=== PATIENT | female | born 1970 | race Caucasian/White ===

== ENCOUNTER 2022-03-11 07:29 | Inpatient (IN) ==
[2022-03-11] MEDS ORDERED: MoRPHine SULFATE 4 MG/ML 1 ML CARP\\VIAL IV STA (08:00)
[2022-03-11] MEDS ORDERED: ONDANSETRON INJ 2 MG/ML 2 ML VIAL IV STA (08:00)
[2022-03-11] MEDS ORDERED: SODIUM CHLORIDE 0.9% 1000ML 1,000 ML IV ONE (08:00)
--- NOTE | 2022-03-11 08:03 | Emergency Department Note ---
History of Present Illness General Chief complaint: Abdominal Pain Stated complaint: ABDOMINAL PAIN, NAUSEA Time Seen by Provider: 03/11/22 07:47 Source: patient Mode of arrival: ambulatory Limitations: no limitations History of Present Illness Maximum Pain Intensity: 5 This patient is a 51-year-old female who presents to the emergency department for evaluation of abdominal pain. Patient reports that her pain started yesterday morning. She initially had some epigastric pain which felt like indigestion. She states the pain continued throughout the day, but has now moved to her right lower abdomen. She had trouble sleeping overnight due to the pain. She rates her current discomfort a 5/10. It is worsened with any movements, palpating the area and hitting bumps on the road on the way here. Pain is better when she is lying completely still. She tried Mylicon and Tylenol without relief. She reports nausea but denies vomiting. She denies any changes in bowel movements. She denies any urinary symptoms or fevers. She denies history of similar symptoms. She has had a prior , but denies o ther abdominal surgeries. She still has her appendix and gallbladder. Home Medications Medication Instructions Recorded Confirmed Type acetaminophen 500 mg tablet 500 mg PO Q6H PRN 03/11/22 03/11/22 History (Tylenol Extra Strength) cholecalciferol (vitamin D3) 50 50 mcg PO QAM 03/11/22 03/11/22 History mcg (2,000 unit) capsule diphenhydramine HCl 25 mg capsule 25 mg PO HS 03/11/22 03/11/22 History (Benadryl) simethicone 80 mg chewable tablet 80 mg PO BID PRN 03/11/22 03/11/22 History Allergies Allergy/AdvReac Type Severity Reaction Status Date / Time No Known Allergies Allergy Verified 03/11/22 11:25 Past Med/Surg History Medical History Atrophy of left kidney Surgical History History of section S/P tonsillectomy Social History Smoking Status: Former smoker Cigarettes Per Day: 10/22/2007; Second Hand Exposure: Yes; Do You Dip or Chew Tobacco: No; Hx Alcohol Use: Yes Alcohol type: beer Hx Substance Use: No Preferred Language: Tuvaluan Communication Ability: Effective Farm Planner Required: No Current Living Situation: Spouse Other Information That Helps Us Care for You: No Feels Safe at Home: Yes Safety Concerns: Feels Safe At This Time Assistive Devices: None Review of Systems A total of 10 systems reviewed and were otherwise negative Physical Exam Vital Signs Vital Signs - 24 hr 03/11/22 07:36 03/11/22 08:04 03/11/22 10:08 Temperature 36.8 C Temperature Source Temporal Artery Scan Pulse Rate 103 H 70 Pulse Rate [Apical] 88 Pulse Rate [Left Finger] Pulse Rhythm Regular Pulse Rhythm [Apical] Pulse Rhythm [Left Finger] Pulse Strength [Apical] Pulse Strength [Left Finger] Respiratory Rate 18 18 18 Respiratory Effort / Characteristics Non-Labored Respiratory Depth Normal Respiratory Pattern Regular Blood Pressure 129/63 Blood Pressure [Right Arm] 144/67 H Blood Pressure Mean 85 Blood Pressure Mean [Right Arm] 92 Blood Pressure Position [Right Arm] Pulse Oximetry 99 100 Oxygen Delivery Method Room Air Room Air Oxygen Flow Rate Sepsis Recent Fever Within 48 Hours No Sepsis New/Unexplained Change in Mental Status No Sepsis Action Taken by Nursing No Action Required 03/11/22 11:08 03/11/22 11:25 03/11/22 13:23 Temperature 38.1 C H 37.2 C Temperature Source Oral Temporal Artery Scan Pulse Rate Pulse Rate [Apical] 87 105 H Pulse Rate [Left Finger] 107 H Pulse Rhythm Pulse Rhythm [Apical] Regular Pulse Rhythm [Left Finger] Regular Pulse Strength [Apical] Normal Pulse Strength [Left Finger] Normal Respiratory Rate 18 20 20 Respiratory Effort / Characteristics Non-Labored Spontaneous Non-Labored Spontaneous Respiratory Depth Normal Normal Respiratory Pattern Regular Regular Blood Pressure Blood Pressure [Right Arm] 135/74 115/68 Blood Pressure Mean Blood Pressure Mean [Right Arm] 94 83 Blood Pressure Position [Right Arm] Semi-fowlers Lying Pulse Oximetry 97 99 99 Oxygen Delivery Method Room Air Room Air Oxymask Oxygen Flow Rate 6 Sepsis Recent Fever Within 48 Hours Sepsis New/Unexplained Change in Mental Status Sepsis Action Taken by Nursing VITALS: Vitals are noted on the nurse's note and reviewed by myself. GENERAL: This is a 51-year-old female, in no acute distress, well-developed well-nourished. SKIN: The skin was without rashes. EARS: External auditory canals clear, tympanic membranes pearly jones without erythema or effusion bilaterally. EYES: Pupils equal round and reactive to light and accommodation. No scleral icterus. MOUTH: Mucous membranes moist. Tonsils are not enlarged. Pharynx without erythema or exudate. NECK: Supple without nuchal rigidity. No lymphadenopathy. HEART: Regular rate and rhythm without murmurs gallops or rubs. LUNGS: Clear to auscultation bilaterally without wheezes, rales or rhonchi. No retractions or accessory muscle use. ABDOMEN: Positive bowel sounds x 4. Soft, significant tenderness in the right lower quadrant No guarding or rebound tenderness. NEURO: Patient was alert and oriented to person place and time. Course Administered Medications Lactated Ringer's (Lr) 1,000 mls @ 80 mls/hr IV .[id number] CARLENE Stop: 04/10/22 16:16 Last Admin: 03/11/22 16:51 Dose: 80 mls/hr Documented by: [id number] Cefoxitin Sodium 2,000 mg/ (Dextrose) 60 mls @ 100 mls/hr IV Q6H [facility] Stop: 03/12/22 16:29 Last Admin: 03/11/22 16:52 Dose: 100 mls/hr Documented by: [id number] Discontinued Medications Bupivacaine HCl/Epinephrine Bitart (Bupivacaine/Epinephrine 0.25% 1:200,000 30 Ml Vial) Confirm Administered Dose 30 ml .ROUTE .STK-MED ONE Stop: 03/11/22 11:10 Last Admin: 03/11/22 13:02 Dose: 30 ml Documented by: [id number] Fentanyl Citrate (Fentanyl Citrate 100 Mcg/2 Ml Vial) 50 mcg IV Q5M PRN PRN Reason: PACU Use Only-Pain Stop: 03/11/22 18:40 Last Admin: 03/11/22 14:18 Dose: 50 mcg Documented by: [id number] Admin: 03/11/22 14:09 Dose: 50 mcg Documented by: [id number] Admin: 03/11/22 13:54 Dose: 50 mcg Documented by: [id number] Admin: 03/11/22 13:49 Dose: 50 mcg Documented by: [id number] Hydromorphone HCl (Hydromorphone Inj 1 Mg/Ml Syringe) Confirm Administered Dose 1 mg .ROUTE .STK-MED ONE Stop: 03/11/22 15:10 Last Admin: 03/11/22 15:17 Dose: Not Given Documented by: [id number] Hydromorphone HCl (Hydromorphone Inj 1 Mg/Ml Syringe) 0.25 mg IV Q5M PRN PRN Reason: PACU Use Only-Pain Stop: 03/11/22 23:12 Last Admin: 03/11/22 15:11 Dose: 0.25 mg Documented by: [id number] Sodium Chloride (Nss 1000ml) 1,000 mls @ 999 mls/hr IV .Q1H1M ONE Stop: 03/11/22 09:00 Last Infusion: 03/11/22 09:36 Dose: 0 mls/hr Documented by: [id number] Admin: 03/11/22 08:18 Dose: 999 mls/hr Documented by: [id number] Cefoxitin Sodium (Mefoxin) 2,000 mg in 60 mls @ 100 mls/hr IV NOW STA Stop: 03/11/22 10:48 Last Infusion: 03/11/22 11:04 Dose: 0 mls/hr Documented by: [id number] Admin: 03/11/22 10:24 Dose: 100 mls/hr Documented by: [id number] Ioversol (Optiray 320 100ml) 70 ml IV ONCE ONE Stop: 03/11/22 09:46 Last Admin: 03/11/22 09:38 Dose: 70 ml Documented by: [id number] Morphine Sulfate (Morphine Sulfate 4 Mg/Ml 1 Ml Carp\Vial) 4 mg IV NOW STA Stop: 03/11/22 08:01 Last Admin: 03/11/22 08:18 Dose: 4 mg Documented by: [id number] Ondansetron HCl (Ondansetron Inj 2 Mg/Ml 2 Ml Vial) 4 mg IV NOW STA Stop: 03/11/22 08:01 Last Admin: 03/11/22 08:18 Dose: 4 mg Documented by: [id number] Medical Decision Making Differential Diagnosis Appendicitis, ovarian cyst, ovarian torsion, ectopic , TOA, PID, inf ections, diverticulitis, UTI, obstruction, mesenteric ischemia, aortic pathology, inflammatory bowel disease, renal colic, PUD, pancreatitis, biliary pathology, hernia, volvulus, constipation, as well as other pathologies. Home Medications Current Medication List: was personally reviewed by me Laboratory Data Attestation: I reviewed the patient's lab results. Result diagrams: 03/11/22 07:53 03/11/22 07:53 Lab Results 03/11/22 03/11/22 03/11/22 Range/Units 07:53 07:53 07:53 WBC 14.98 H (4.8-10.8) K/uL RBC 4.86 (4.2-5.4) M/uL Hgb 14.3 (12.0-16.0) g/dL Hct 41.1 (37-47) % MCV 84.6 (80-100) fL MCH 29.4 (25-34) pg MCHC 34.8 (32-36) g/dL RDW Std Deviation 39.9 (36.4-46.3) fL RDW Coeff of Sandra 13.2 (11.5-14.5) % Plt Count 373 (130-400) K/uL MPV 9.4 (7.4-10.4) fL Immature Gran % (Auto) 0.4 % Neut % (Auto) 84.8 % Lymph % (Auto) 8.5 % [place] % (Auto) 6.0 % Eos % (Auto) 0.2 % Baso % (Auto) 0.1 % Neut # (Auto) 12.70 H (1.4-6.5) K/uL Lymph # (Auto) 1.27 (1.2-3.4) K/uL [place] # (Auto) 0.90 H (0.11-0.59) K/uL Eos # (Auto) 0.03 (0-0.5) K/uL Baso # (Auto) 0.02 (0-0.2) K/uL Immature Gran # (Auto) 0.06 H (0.00-0.02) K/uL Sodium 137 (136-145) mmol/L Potassium TNP Chloride 102 (98-107) mmol/L Carbon Dioxide 26 (21-32) mmol/L Anion Gap 9 (3-11) BUN 8 (6-23) mg/dl Creatinine 0.80 (0.6-1.2) mg/dl Est Cr Clr Drug Dosing 81.9 ml/min Est GFR ( Amer) 98.9 ml/min Est GFR (Non-Af Amer) 85.4 ml/min BUN/Creatinine Ratio 10.0 (10-20) Glucose 114 H (70-99(Fasting)) mg/dl Calcium 10.3 H (8.5-10.1) mg/dl Total Bilirubin 0.6 (0.2-1.0) mg/dl AST TNP ALT 44 (7-52) U/L Alkaline Phosphatase 111 H (34-104) U/L Total Protein 8.2 (6.0-8.3) gm/dl Albumin 4.9 (3.4-5.0) gm/dl Globulin 3.3 (2.5-4.0) gm/dl Albumin/Globulin Ratio 1.5 (0.9-2) Lipase 33 (11-82) U/L Urine Color Yellow Urine Appearance Clear (Clear) Urine pH 8.0 H (4.5-7.5) Ur Specific [place] 1.018 (1.000-1.030) Urine Protein Negative (Negative) Urine Glucose (UA) Negative (Negative) Urine Ketones Negative (Negative) Urine Blood Negative (Negative) Urine Nitrite Negative (Negative) Urine Bilirubin Negative (Negative) Urine Urobilinogen Negative (Negative) Ur Leukocyte Esterase Negative (Negative) POC Ur Test (NEG) SARS-CoV-2, RNA, NAAT (NEGATIVE) 03/11/22 03/11/22 03/11/22 Range/Units 07:53 10:25 10:56 WBC (4.8-10.8) K/uL RBC (4.2-5.4) M/uL Hgb (12.0-16.0) g/dL Hct (37-47) % MCV (80-100) fL MCH (25-34) pg MCHC (32-36) g/dL RDW Std Deviation (36.4-46.3) fL RDW Coeff of Sandra (11.5-14.5) % Plt Count (130-400) K/uL MPV (7.4-10.4) fL Immature Gran % (Auto) % Neut % (Auto) % Lymph % (Auto) % [place] % (Auto) % Eos % (Auto) % Baso % (Auto) % Neut # (Auto) (1.4-6.5) K/uL Lymph # (Auto) (1.2-3.4) K/uL [place] # (Auto) (0.11-0.59) K/uL Eos # (Auto) (0-0.5) K/uL Baso # (Auto) (0-0.2) K/uL Immature Gran # (Auto) (0.00-0.02) K/uL Sodium (136-145) mmol/L Potassium 3.7 Chloride (98-107) mmol/L Carbon Dioxide (21-32) mmol/L Anion Gap (3-11) BUN (6-23) mg/dl Creatinine (0.6-1.2) mg/dl Est Cr Clr Drug Dosing ml/min Est GFR ( Amer) ml/min Est GFR (Non-Af Amer) ml/min BUN/Creatinine Ratio (10-20) Glucose (70-99(Fasting)) mg/dl Calcium (8.5-10.1) mg/dl Total Bilirubin (0.2-1.0) mg/dl AST 28 ALT (7-52) U/L Alkaline Phosphatase (34-104) U/L Total Protein (6.0-8.3) gm/dl Albumin (3.4-5.0) gm/dl Globulin (2.5-4.0) gm/dl Albumin/Globulin Ratio (0.9-2) Lipase (11-82) U/L Urine Color Urine Appearance (Clear) Urine pH (4.5-7.5) Ur Specific [place] (1.000-1.030) Urine Protein (Negative) Urine Glucose (UA) (Negative) Urine Ketones (Negative) Urine Blood (Negative) Urine Nitrite (Negative) Urine Bilirubin (Negative) Urine Urobilinogen (Negative) Ur Leukocyte Esterase (Negative) POC Ur Test NEG (NEG) SARS-CoV-2, RNA, NAAT NEGATIVE (NEGATIVE) Imaging Data Attestation: I personally reviewed and interpreted this imaging study as follows: Radiologist's Impression: Abdomen/Pelvis CT 03/11/22 08:[address] WITH IV CONTRAST CT DOSE: 782.03 mGycm HISTORY: Right lower quadrant abdominal pain. TECHNIQUE: Multiaxial CT images of the abdomen and pelvis were performed following the use of intravenous contrast. A dose lowering technique was utilized adhering to the principles of ALARA. COMPARISON STUDY: None. FINDINGS: Small focal consolidation with bronchiectasis within the medial aspect of the right middle lobe. This is likely chronic. The left lung base is clear. Bilateral L5 spondylolysis. No suspicious lytic are blastic osseous lesions. Severe hepatic steatosis. The main portal vein is patent. The gallbladder, pancreas, spleen, and adrenal glands are unremarkable. Severely atrophic left kidney. Mild fullness within the right renal collecting system and right ureter without hydronephrosis. There is mild multifocal scarring within the right kidney. A 6 mm hypodense lesion within the right kidney is technically too small to characterize but likely represents a cyst. No retroperitoneal lymphadenopathy. The main portal vein is patent. The bladder, uterus, and ovar ies are within normal limits. Distended and fluid-filled appendix with extensive periappendiceal fat stranding/edema. This is consistent with acute appendicitis. There is a 6 mm appendicolith within the proximal appendix. The distal appendix is dilated up to 16 mm. Small foci of gas within the mid appendix is likely intraluminal. A developing contained perforation could also have a similar appearance. However, no definite extraluminal gas or abscess identified at this time. IMPRESSION: 1. Acute appendicitis as described above. 2. Hepatic steatosis. 3. Severely atrophic left kidney. ACT 112: Negative or not required by law. Electronically signed by: Ole Gant M.D. 03/11/2022 10:08 AM MDM Narrative Continuous latex fashions designer: Order was placed for continuous latex fashions designer. Patient was placed on the latex fashions designer. Patient was noted to be in sinus tachycardia at an initial rate of 104 bpm. The patient is a 51-year-old female who presents today complaining of right lower quadrant abdominal pain. Labs revealed a leukocytosis of 15,000. There were no concerning electrolyte abnormalities. CT scan showed findings suggestive of appendicitis. Patient given a dose of IV cefoxitin. General surgery was consulted and agreed to evaluate the patient at bedside. Patient was taken to the OR for operative management. Impression & Plan Acute appendicitis Discharge Plan Visit Data Chief Complaint: Abdominal Pain Stated Complaint: ABDOMINAL PAIN, NAUSEA ED Provider: Wilfred Islas ED Midlevel Provider: Palmira King Discharge Problem: Acute appendicitis Patient Disposition: Admitted As Inpatient Discharge Instructions Interventions: ED Discharge Assessment Last Done: 03/11/22 11:00
[2022-03-11 08:08] LABS: Basophils # (auto) 0.02 K/uL (0-0.2); Basophils % (auto) 0.1 %; Eosinophils # (auto) 0.03 K/uL (0-0.5); Eosinophils % (auto) 0.2 %; Hematocrit (blood only) 41.1 % (37-47); Hemoglobin 14.3 g/dL (12.0-16.0); Immature Granulocytes # (auto) 0.06 K/uL (0.00-0.02); Immature Granulocytes % (auto) 0.4 %; Lymphocytes # (auto) 1.27 K/uL (1.2-3.4); Lymphocytes % (auto) 8.5 %; Mean Corpuscular Hemoglobin 29.4 pg (25-34); Mean Corpuscular Hgb Conc 34.8 g/dL (32-36); Mean Corpuscular Volume 84.6 fL (80-100); Mean Platelet Volume 9.4 fL (7.4-10.4); Neutrophils % (auto) 84.8 %; Platelet Count 373 K/uL (130-400); RDW Coefficient of Variation 13.2 % (11.5-14.5); RDW Standard Deviation 39.9 fL (36.4-46.3); Red Blood Count 4.86 M/uL (4.2-5.4); White Blood Count 14.98 K/uL (4.8-10.8)
[2022-03-11 08:12] LABS: Appearance Urine Clear (Clear); Bilirubin Urine Negative (Negative); Blood Urine Negative (Negative); Color Urine Yellow; Glucose Urine UA Negative (Negative); Ketones Urine Negative (Negative); Leukocyte Esterase Urine Negative (Negative); Nitrite Urine Negative (Negative); Protein Urine Negative (Negative); Specific Gravity Urine 1.018 (1.000-1.030); Urobilinogen Urine Negative (Negative)
[2022-03-11 08:53] LABS: Alanine Aminotransferase 44 U/L (7-52); Albumin Globulin Ratio 1.5 (0.9-2); Albumin Level 4.9 gm/dl (3.4-5.0); Alkaline Phosphatase 111 U/L (34-104); Anion Gap 9 (3-11); Bilirubin,Total 0.6 mg/dl (0.2-1.0); Blood Urea Nitrogen 8 mg/dl (6-23); Calcium 10.3 mg/dl (8.5-10.1); Carbon Dioxide 26 mmol/L (21-32); Chloride 102 mmol/L (98-107); Creatinine Clr Calc Pharmacy 81.9 ml/min; Est GFR (African American) 98.9 ml/min; Est GFR (Non-African American) 85.4 ml/min; Globulin 3.3 gm/dl (2.5-4.0); Glucose 114 mg/dl (70-99(Fasting)); Lipase 33 U/L (11-82); Sodium 137 mmol/L (136-145); Total Protein 8.2 gm/dl (6.0-8.3)
[2022-03-11 09:15] LABS: Potassium 3.7 mmol/L (3.5-5.1)
[2022-03-11] MEDS ORDERED: OPTIRAY 320 100ml IV ONE (09:45)
--- NOTE | 2022-03-11 10:10 | CT Scan Report ---
ABDOMEN AND PELVIS CT WITH IV CONTRAST CT DOSE: 782.03 mGycm HISTORY: Right lower quadrant abdominal pain. TECHNIQUE: Multiaxial CT images of the abdomen and pelvis were performed following the use of intrave nous contrast. A dose lowering technique was utilized adhering to the principles of ALARA. COMPARISON STUDY: None. FINDINGS: Small focal consolidation with bronchiectasis within the medial aspect of the right middle lobe. This is likely chronic. The left lung base is clear. Bilateral L5 spondylolysis. No suspicious lytic are blastic osseous lesions. Severe hepatic steatosis. The main portal vein is patent. The gall bladder, pancreas, spleen, and adrenal glands are unremarkable. Severely atrophic left kidney. Mild f ullness within the right renal collecting system and right ureter without hydronephrosis. There is mi ld multifocal scarring within the right kidney. A 6 mm hypodense lesion within the right kidney is te chnically too small to characterize but likely represents a cyst. No retroperitoneal lymphadenopathy. The main portal vein is patent. The bladder, uterus, and ovaries are within normal limits. Distended and fluid-filled appendix with extensive periappendiceal fat stranding/edema. This is consistent wit h acute appendicitis. There is a 6 mm appendicolith within the proximal appendix. The distal appendix is dilated up to 16 mm. Small foci of gas within the mid appendix is likely intraluminal. A developi ng contained perforation could also have a similar appearance. However, no definite extraluminal gas or abscess identified at this time. IMPRESSION: 1. Acute appendicitis as described above. 2. Hepatic steatosis. 3. Severely atrophic left kidney. ACT 112: Negative or not required by law. Electronically signed by: Ole Gant M.D. 03/11/2022 10:08 AM
[2022-03-11] MEDS ORDERED: cefOXitin 2,000 MG/60 ML BAG IV STA (10:13)
--- NOTE | 2022-03-11 10:39 | Surgery Consultation ---
Date of Consultation March 11, 2022 Assessment & Plan (1) Acute appendicitis: This is a 51yF with a PMH of and atrophy of L kidney who presents to the [facility] [place] ED on 03/11/22 with complaints of abdominal pain starting yesterday morning. Pain has migrated to the RLQ and remained constant. In the ER she underwent a CT a/p performed revealed evidence of acute appendicitis. WBC 14.9 and patient is afebrile. On examination patient's abdomen is soft with TTP in the RLQ. Given her presentation and workup in the ER we will proceed with taking the patient to the OR for a laparoscopic appendectomy. Keep NPO with IVF, preop Mefoxin given. Covid test pending. Dr. Lamar will be by to obtain s urgical consent. Supervising Physician Co-Signing Physician Notes I personally saw and evaluated the patient with Shilpa Alvarado PA-C and agree with the assessment and plan. 51-year-old female with acute appendicitis CT images and results reviewed by me, questionable perforation however no abscess or fluid collection We will plan on laparoscopic appendectomy, possible open today Consent was obtained, risks discussed including bleeding, infection, leak, abscess, need for further surgery History of Present Illness History of Present Illness This is a 51yF with a PMH of and atrophy of L kidney who presents to the [facility] [place] ED on 03/11/22 with complaints of abdominal pain starting yesterday morning. She states the pain was located in the upper abdomen and initially thought it was indigestion. Throughout the day the pain moved to the lower abdomen and then migrated to the RLQ and has remained constant. She reports + nausea without vomiting. She came into the ER due to ongoing symptoms. A CT a/p performed revealed evidence of acute appendicitis. She states the pain is a 5/10 at rest, but is made worse with movement. She last ate some fries around 2pm yesterday and has been NPO since. + chills, no fevers or change in bowel habits. Previous surgical history includes a tonsillectomy and . Allergies Allergy/AdvReac Type Severity Reaction Status Date / Time No Known Allergies Allergy Verified 03/11/22 11:25 Home Medications Medication Instructions Recorded Confirmed Type acetaminophen 500 mg tablet 500 mg PO Q6H PRN 03/11/22 03/11/22 History (Tylenol Extra Strength) cholecalciferol (vitamin D3) 50 50 mcg PO QAM 03/11/22 03/11/22 History mcg (2,000 unit) capsule diphenhydramine HCl 25 mg capsule 25 mg PO HS 03/11/22 03/11/22 History (Benadryl) simethicone 80 mg chewable tablet 80 mg PO BID PRN 03/11/22 03/11/22 History Patient History Medical History Atrophy of left kidney Surgical History History of section S/P tonsillectomy Social History Smoking Status: Never smoker Preferred Language: Armenian Feels Safe at Home: Yes Review of Systems Constitutional: + chills; no fever Respiratory: no dyspnea Gastrointestinal: + abdominal pain, + bloating and + nausea; no vomiting and no change in bowel habits Physical Exam Physical Exam: awake/alert, no acute distress Respiratory: normal respiratory effort Gastrointestinal (Abdomen): Inspection/Auscultation: abdomen not distended Percussion/Palpation: + abdomen tender (ttp RLQ and mild ttp in LLQ) and abdomen soft Results & Data ([facility]) Vital Signs (Past 12 Hours) Vital Signs Temp Pulse Pulse Resp BP BP Pulse Ox 03/11/22 10:08 88 18 144/67 H 03/11/22 08:04 70 18 100 03/11/22 07:36 36.8 C 103 H 18 129/63 99 Diagnostic Findings ABDOMEN AND PELVIS CT WITH IV CONTRAST CT DOSE: 782.03 mGycm HISTORY: Right lower quadrant abdominal pain. TECHNIQUE: Multiaxial CT images of the abdomen and pelvis were performed following the use of intravenous contrast. A dose lowering technique was util ized adhering to the principles of ALARA. COMPARISON STUDY: None. FINDINGS: Small focal consolidation with bronchiectasis within the medial aspect of the right middle lobe. This is likely chronic. The left lung base is clear. Bilateral L5 spondylolysis. No suspicious lytic are blastic osseous lesions. Severe hepatic steatosis. The main portal vein is patent. The gallbladder, pancreas, spleen, and adrenal glands are unremarkable. Severely atrophic left kidney. Mild fullness within the right renal collecting system and right ureter without hydronephrosis. There is mild multifocal scarring within the right kidney. A 6 mm hypodense lesion within the right kidney is technically too small to characterize but likely represents a cyst. No retroperitoneal lymphadenopathy. The main portal vein is patent. The bladder, uterus, and ovaries are within normal limits. Distended and fluid-filled appendix with extensive periappendiceal fat stranding/edema. This is consistent with acute appendicitis. There is a 6 mm appendicolith within the proximal appendix. The distal appendix is dilated up to 16 mm. Small foci of gas within the mid appendix is likely intraluminal. A developing contained perforation could also have a similar appearance. However, no definite extraluminal gas or abscess identified at this time. IMPRESSION: 1. Acute appendicitis as described above. 2. Hepatic steatosis. 3. Severely atrophic left kidney. ACT 112: Negative or not required by law. Electronically signed by: Ole Gant M.D. 03/11/2022 10:08 AM PG Care Time/CCT Total # of Minutes Spent Total Time Spent with Patient: Total time spent is greater than 50% in coordination of care (as documented) at patient's floor/unit and/or counseling patient: Coding Level of Care Code 55921 Inpt Consult Level 5 Diagnoses Acute appendicitis K35.80
[2022-03-11] MEDS ORDERED: ONDANSETRON INJ 2 MG/ML 2 ML VIAL IV PRN (10:40)
[2022-03-11] MEDS ORDERED: ePHEDrine sulfate 50 MG/ML AMP IV PRN (10:40)
[2022-03-11] MEDS ORDERED: ATROPINE SULFATE 0.1 MG/ML 10ML SYR IV PRN (10:40)
--- NOTE | 2022-03-11 10:40 | Anesthesiology Consultation ---
Date of Service March 11, 2022 Assessment & Plan (1) Encounter for pre-operative examination: Chart Review Chart Review: carpentry supervisor initiated History Surgery Operation Date: 03/11/22 09:15 Proposed Procedures p Laparoscopic Appendectomy - Stalin Lamar DO Height/Weight Height: 5 ft 4 in Weight: 73.8 kg Allergies Allergy/AdvReac Type Severity Reaction Status Date / Time No Known Allergies Allergy Unverified 03/11/22 10:28 Medications Home Medications Medication Instructions Recorded Confirmed Last Taken acetaminophen 500 mg tablet 500 mg PO Q6H PRN 03/11/22 03/11/22 03/11/22 02:30 (Tylenol Extra Strength) cholecalciferol (vitamin D3) 50 50 mcg PO QAM 03/11/22 03/11/22 03/10/22 mcg (2,000 unit) capsule diphenhydramine HCl 25 mg capsule 25 mg PO HS 03/11/22 03/11/22 03/10/22 (Benadryl) simethicone 80 mg chewable tablet 80 mg PO BID PRN 03/11/22 03/11/22 03/10/22 18:30 160 MG Active Medications Generic Name Dose Route Start Last Admin Trade Name Freq PRN Reason Stop Dose Admin Cefoxitin Sodium 2,000 mg in 60 mls @ 100 mls/hr 03/11/22 10:13 03/11/22 10:24 Mefoxin IV 03/11/22 10:48 100 mls/hr NOW STA Administration NPO Date Last Intake of Fluids: 03/11/22 Time Last Intake of Fluids: 07:30 Date Last Intake of Solids: 03/10/22 Time Last Intake of Solids: 14:00 Past Medical History Medical History Atrophy of left kidney Past Surgical History Surgical History History of section S/P tonsillectomy Social History Smoking Status: Never smoker Physical Exam Vital Signs Last Vital Signs Temp 98.2 F 03/11/22 07:36 Pulse 88 03/11/22 10:08 Resp 18 03/11/22 10:08 BP 144/67 H 03/11/22 10:08 Pulse Ox 100 03/11/22 08:04 Testing Laboratory Results 03/11/22 07:53 03/11/22 07:53 Urine Color Yellow 03/11/22 07:53 Urine Appearance Clear (Clear) 03/11/22 07:53 Urine pH 8.0 (4.5-7.5) H 03/11/22 07:53 Ur Specific [place] 1.018 (1.000-1.030) 03/11/22 07:53 Urine Protein Negative (Negative) 03/11/22 07:53 Urine Glucose (UA) Negative (Negative) 03/11/22 07:53 Urine Ketones Negative (Negative) 03/11/22 07:53 Urine Nitrite Negative (Negative) 03/11/22 07:53 Ur Leukocyte Esterase Negative (Negative) 03/11/22 07:53
[2022-03-11] MEDS ORDERED: LIDOCAINE 2% 2 ML VIAL/AMP(20MG/ML) INFIL ONE (11:08)
[2022-03-11] MEDS ORDERED: GLYCOPYRROLATE 0.2 MG/ML VIAL ONE (11:08)
[2022-03-11] MEDS ORDERED: DEXAMETHASONE SOD INJ 4 MG/ML VIAL ONE (11:08)
[2022-03-11] MEDS ORDERED: ROCURONIUM BROMIDE 10 MG/ML 5 ML VIAL IV ONE (11:08)
[2022-03-11] MEDS ORDERED: NEOSTIGMINE METHYLSULFATE 1 MG/ML 10ML VIAL ONE (11:08)
[2022-03-11] MEDS ORDERED: PROPOFOL IV EMULSION 10 MG/ML 20 ML VIAL IV ONE (11:08)
[2022-03-11] MEDS ORDERED: fentaNYL citrate 100 MCG/2 ML VIAL ONE (11:08)
[2022-03-11] MEDS ORDERED: MIDAZOLAM HCL 1 MG/ML 2ML VIAL ONE (11:08)
[2022-03-11] MEDS ORDERED: ONDANSETRON INJ 2 MG/ML 2 ML VIAL ONE (11:08)
[2022-03-11] MEDS ORDERED: BUPIVACAINE/EPINEPHRINE 0.25% 1:200,000 30 ML VIAL ONE (11:09)
--- NOTE | 2022-03-11 13:10 | Post Operative Brief Note ---
PG Immediate Post Op with CF Date of Surgery March 11, 2022 Pre & Post Diagnosis Operation Date: 03/11/22 09:15 Pre-Op Diagnosis: Acute Appendicitis Post-Op Diagnosis: Acute gangrenous appendicitis with perforation I identified the patient and participated in the time-out.: Yes Procedure Operation Date: 03/11/22 09:15 Actual Procedures p Laparoscopic Appendectomy(Not Applicable) - Stalin Lamar DO Surgeon Stalin Lamar DO Street Roller Engineer Shilpa Alvarado PA-C Estimated Blood Loss 10 Findings See Below Gangrenous appendix with perforation at midpoint Specimens Specimen Description: A. Appendix Drains Whitney Catheter Anesthesia Type General Complications none Disposition Disposition: Recovery Room
--- NOTE | 2022-03-11 13:15 | Operative Report ---
PG Post Operative Report Pre & Post Diagnosis Operation Date: 03/11/22 09:15 Pre-Op Diagnosis: Acute Appendicitis Post-Op Diagnosis: Acute gangrenous appendicitis with perforation I identified the patient and participated in the time-out.: Yes Procedure Operation Date: 03/11/22 09:15 Actual Procedures p Laparoscopic lysis of adhesions, laparoscopic Appendectomy(Not Applicable) - Stalin Lamar DO Surgeon Stalin Lamar DO Aeronautical Research Engineer Shilpa Alvarado PA-C Estimated Blood Loss 10 Findings See Below Gangrenous appendicitis with perforation at midpoint Specimens Appendix to pathology Drains None Anesthesia Type General Complications none Disposition Disposition: Recovery Room Indications 51-year-old female with acute appendicitis Description of Procedure The patient was brought to the OR and placed in the supine position and SCD's placed. At this time she underwent general endotracheal anesthesia without incident. At this time a Whitney catheter was placed under sterile conditions. Her abdomen was prepped and draped in the usual sterile fashion. She was given appropriate pre-operative antibiotics. A timeout was called, the procedure was verified as Laparoscopic appendectomy, possible open. Surgical, anesthesia and nursing teams agreed and the procedure was begun. After injection of 0.25% Marcaine with epinephrine, a supraumbilical incision was made using a #11 blade scalpel and carried down to the fascia with a hemostat. The abdomen was then elevated with towel clamps and entered using the Veress needle confirming position using the saline drop test. Pneumoperitoneum was established and 5mm trocar was placed. Laparoscope was introduced. No injury was seen from our entrance to the abdomen. At this time 12mm LLQ port was placed under direct visualization. There were adhesions to the abdominal wall at her previous C- section incision. These were lysed using scissors cautery in order to make room for placement of our 5 mm suprapubic port. Once the adhesions were lysed a 5 mm suprapubic port was placed under direct visualization. The patient was placed in Trendelenburg and rotated to the left. At this time the appendix was visualized. The appendix itself was densely adhered to the anterior portion of the cecum. This was peeled off using blunt dissection and the tip was elevated towards the abdominal wall. The appendix itself was gangrenous and had a perforation at the midpoint of the appendix. A window was created in the mesoappendix at the base of the appendix. A 45mm correia load stapler was then fired across the base of the appendix which appeared healthy. The mesoappendix was then taken using Harmonic device. The appendix was then placed in an Endocatch bag and removed through the LLQ port site. Staple line was inspected and was intact. Hemostasis was complete. A small amount of purulent fluid was suctioned out of the RLQ and pelvis. The right lower quadrant was irrigated and suctioned out until clear. At this point the omentum was placed over the staple line. The 12 mm port was then closed at the fascial level using a 0 Vicryl sherman ture using the suture passer. All ports were removed under direct visualization and no bleeding was noted. The abdomen was desufflated and the skin was closed using 4-0 Monocryl in a subcuticular fashion. Sterile dressings were applied. Whitney catheter was removed. The patient was then awakened from anesthesia having remained stable throughout the entire case and transported to PACU. All needle and sponge counts were correct x 2. The physician assistant facility manager was present scrubbed for the entire case. She was essential in positioning, prepping and draping the patient, driving the laparoscope, retraction and exposure, closure of the incisions and placement of the dressings. I attest to the content of the Intraoperative Record and any orders documented therein. Any exceptions are noted below.
[2022-03-11] MEDS: fentaNYL citrate 100 MCG/2 ML VIAL IV PRN ×4 (13:49→14:18)
--- NOTE | 2022-03-11 14:16 | Anesthesiology Progress Note ---
Date of Service March 11, 2022 Anesthesia Post Procedure Vital Signs Vital Signs: Temp Pulse Pulse Pulse Resp BP BP 03/11/22 13:50 103 H 23 122/65 03/11/22 13:40 103 H 24 133/75 03/11/22 13:30 94 H 24 131/63 03/11/22 13:23 99.0 F 105 H 20 115/68 03/11/22 11:25 100.6 F H 107 H 20 135/74 03/11/22 11:08 87 18 03/11/22 10:08 88 18 144/67 H 03/11/22 08:04 70 18 03/11/22 07:36 98.2 F 103 H 18 129/63 Pulse Ox 03/11/22 13:50 98 03/11/22 13:40 100 03/11/22 13:30 100 03/11/22 13:23 99 03/11/22 11:25 99 03/11/22 11:08 97 03/11/22 10:08 03/11/22 08:04 100 03/11/22 07:36 99 Pain Intensity Right Abdomen: Pain Intensity: 5 Abdomen: Pain Intensity: 7 Transfer of Care Handoff Completed per policy Notes Mental Status: alert / awake / arousable and participated in evaluation Patient Amnestic to Procedure: Yes Nausea / Vomiting: adequately controlled Pain: adequately controlled Airway Patency, RR, SpO2: stable & adequate BP & HR: stable & adequate Hydration State: stable & adequate Anesthetic Complications: no major complications apparent and Pt Satisfied with anesthetic care
[2022-03-11] MEDS ORDERED: HYDROmorphone INJ 1 MG/ML SYRINGE ONE (15:09)
[2022-03-11] MEDS ORDERED: HYDROmorphone INJ 1 MG/ML SYRINGE IV PRN (15:12)
[2022-03-11] MEDS: LACTATED RINGER'S 1,000 ML IV SCH (16:51)
[2022-03-11] MEDS: cefOXitin 2,000 MG in DEXTROSE 5% 50 ML IV SCH ×2 (16:52→20:41)
[2022-03-11] MEDS: MoRPHine SULFATE 2 MG/ML CARP IV PRN ×2 (17:32→23:24)
[2022-03-11] MEDS: ACETAMINOPHEN 325 MG TAB PO PRN (18:17)
[2022-03-11] MEDS: oxyCODONE HCL IR 5 MG TAB (IMMEDIATE RELEASE) PO PRN (20:42)
[2022-03-12] MEDS: cefOXitin 2,000 MG in DEXTROSE 5% 50 ML IV SCH ×4 (04:13→22:45)
[2022-03-12] MEDS: MoRPHine SULFATE 2 MG/ML CARP IV PRN (05:48)
[2022-03-12] MEDS: LACTATED RINGER'S 1,000 ML IV SCH ×2 (05:48→20:46)
[2022-03-12 06:31] LABS: Hematocrit (blood only) 35.1 % (37-47); Hemoglobin 12.6 g/dL (12.0-16.0); Mean Corpuscular Hemoglobin 31.1 pg (25-34); Mean Corpuscular Hgb Conc 35.9 g/dL (32-36); Mean Corpuscular Volume 86.7 fL (80-100); Mean Platelet Volume 9.4 fL (7.4-10.4); Platelet Count 279 K/uL (130-400); RDW Coefficient of Variation 13.4 % (11.5-14.5); RDW Standard Deviation 42.6 fL (36.4-46.3); Red Blood Count 4.05 M/uL (4.2-5.4); White Blood Count 13.04 K/uL (4.8-10.8)
[2022-03-12 06:49] LABS: Immature Granulocytes # (auto) 0.03 K/uL (0.00-0.02); Immature Granulocytes % (auto) 0.2 %; Lymphocytes # (auto) 0.85 K/uL (1.2-3.4); Lymphocytes % (auto) 6.5 %; Monocytes # (auto) 0.73 K/uL (0.11-0.59); Monocytes % (auto) 5.6 %; Neutrophils # (auto) 11.43 K/uL (1.4-6.5); Neutrophils % (auto) 87.7 %; RBC Morphology Unremarkable
[2022-03-12 06:53] LABS: BUN Creatinine Ratio 10.5 (10-20); Calcium 8.7 mg/dl (8.5-10.1); Creatinine Clr Calc Pharmacy 76.2 ml/min; Est GFR (African American) 90.7 ml/min; Est GFR (Non-African American) 78.2 ml/min; Potassium 3.7 mmol/L (3.5-5.1)
[2022-03-12] MEDS: oxyCODONE HCL IR 5 MG TAB (IMMEDIATE RELEASE) PO PRN ×3 (10:05→20:46)
--- NOTE | 2022-03-12 10:53 | Surgery Progress Note ---
Date of Service March 12, 2022 Assessment & Plan (1) Acute appendicitis: Plan: She is doing well status post laparoscopic appendectomy for perforated gangrenous appendicitis Continue IV antibiotics while inpatient We will advance her diet She may be able to go home later if she tolerates her diet and is feeling better Admission and Anticipated Discharge Date Admission Date: March 11, 2022 Subjective Patient seen and examined. Tolerating clear liquid diet. Still with decent amount of abdominal pain. This is controlled with pain meds. Afebrile. No flatus or BM. Physical Exam Constitutional: WD/WN, vitals as above Gastrointestinal (Abdomen): Soft, appropriately tender to palpation, no guarding or rigidity Dressings clean dry and intact Results & Data ([facility]) Vital Signs (Past 12 Hours) Vital Signs Temp Pulse Resp BP Pulse Ox 03/12/22 08:10 37.2 C 101 H 18 100/66 94 03/12/22 03:07 37.2 C 91 H 16 88/62 L 95 03/11/22 23:11 37.1 C 94 H 16 99/63 L 95 PG Care Time/CCT Total # of Minutes Spent Total Time Spent with Patient: Total time spent is greater than 50% in coordination of care (as documented) at patient's floor/unit and/or counseling patient: Coding Level of Care Code None Diagnoses Acute appendicitis K35.80
[2022-03-12] MEDS: ACETAMINOPHEN 325 MG TAB PO PRN ×2 (11:30→20:47)
--- NOTE | 2022-03-12 23:40 | Communication Note ---
Date of Service: March 12, 2022 I was called by RN concerning this patient. She is postoperative day 1 laparoscopic appendectomy. At time of surgery her appendix was found to be perforated. RN was concerned that patient was noted to have a tachycardia with a heart rate of 114. Blood pressure is noted to be 100/69. On exam she noted that the patient's abdomen had hypoactive bowel sounds and appeared more distended than what was noted on prior exams. I visited with the patient at bedside. The patient notes that since her surgery she has not passed any flatus and has not had a bowel movement. She does note some indigestion and has been experiencing intermittent nausea without vomiting. Patient also reports that her abdomen is more distended than what was noted previously. She denies any fevers, shakes, chills. She denies any chest pain or shortness of breath. Patient's vitals were reviewed and she has been afebrile since 03/11/2022 at approximately 6:30 PM. She has been afebrile this entire day. At the time of my interview with the patient her heart rate was approximate 110 bpm blood pressure was 100/69. Respirations were 12-16 were nonlabored and pulse ox was 94% on room air. On physical exam patient's lungs were overall clear to auscultation without wheezing or rhonchi. Breath sounds were slightly decreased at the bases as deep inspirations did cause some abdominal discomfort. Cardiovascular exam revealed regular rate and rhythm. Patient's abdomen is noted to be moderately distended and somewhat tympanic to percussion, however not rigid. Bowel sounds are absent. Patient does have generalized pain with palpation but no rebound tenderness or guarding was noted. Labs reviewed from earlier today and white blood cell count is 13. Her hemoglob in was noted to be 12.6 which is within the normal range. Platelet count is normal. Danyel profile today showed sodium, potassium, BUN, and creatinine were all within normal range. I elected to perform a KUB which showed gaseous distention of the large and small bowel consistent with an ileus. Due to the patient's clinical status as well as KUB findings I have backed her diet down to n.p.o. status. I have also increased her IV fluids to 100 cc/h. Repeat labs have been ordered for tomorrow morning. I have discussed with the patient at bedside that I believe she has an ileus and that will merely take time to resolve. I explained her that this was likely result of peritoneal irritation from her perforated appendix. We will continue to follow patient clinically with additional recommendations to be based on her clinical course.
[2022-03-12] MEDS: ONDANSETRON INJ 2 MG/ML 2 ML VIAL IV PRN (23:51)
[2022-03-13] MEDS: FAMOTIDINE 20 MG in SYRINGE 3 ML IV SCH ×3 (04:05→21:42)
[2022-03-13] MEDS: cefOXitin 2,000 MG in DEXTROSE 5% 50 ML IV SCH (04:07)
--- NOTE | 2022-03-13 04:50 | Communication Note ---
Date of Service: March 13, 2022 I was called by RN noting that patient's abdomen appeared more distended. Patient also continues to complain of nausea and indigestion. I revisited patient at bedside and again she complained of nausea without vomiting. He denies any fevers, shakes, chills. Her vitals were reviewed.Blood pressure is 105/72 with a heart rate of 110 which was regular. Respirations are 14 and nonlabored. Pulse ox is 94% on room air and patient is afebrile. On physical exam patient's abdomen is more distended than what was noted previously on this shift. Bowel sounds remain absent. Abdomen is tender to palpation in a generalized fashion without rebound tenderness. Increased tympany to percussion is noted. As noted previously in the shift I felt patient was suffering from an ileus as was evidenced by the previously noted KUB. During my discussion with the patient she developed emesis of approximately 150 to 200 cc of partially digested food. In light of this I recommended that we place an NG tube for decompression which would help alleviate some of her symptoms and patient was agreeable to this I placed an NG tube without difficulty. The NG tube was flushed with air while auscultating the stomach to verify placement. I also confirm placement with a KUB. 1 placed to suction we immediately obtained approximately 100 cc of partially digested material. I discussed with patient that we will continue IV fluids for hydration measures and keep the NG tube until her abdominal exam/symptoms improve when she begins to have improved bowel function.
[2022-03-13 06:08] LABS: Basophils # (auto) 0.02 K/uL (0-0.2); Basophils % (auto) 0.1 %; Hematocrit (blood only) 38.8 % (37-47); Hemoglobin 13.3 g/dL (12.0-16.0); Immature Granulocytes # (auto) 0.05 K/uL (0.00-0.02); Immature Granulocytes % (auto) 0.3 %; Lymphocytes # (auto) 0.78 K/uL (1.2-3.4); Lymphocytes % (auto) 5.3 %; Mean Corpuscular Hemoglobin 29.3 pg (25-34); Mean Corpuscular Hgb Conc 34.3 g/dL (32-36); Mean Corpuscular Volume 85.5 fL (80-100); Mean Platelet Volume 9.3 fL (7.4-10.4); Monocytes # (auto) 0.42 K/uL (0.11-0.59); Monocytes % (auto) 2.9 %; Neutrophils # (auto) 13.32 K/uL (1.4-6.5); Neutrophils % (auto) 91.4 %; Platelet Count 323 K/uL (130-400); RDW Coefficient of Variation 13.6 % (11.5-14.5); RDW Standard Deviation 42.4 fL (36.4-46.3); Red Blood Count 4.54 M/uL (4.2-5.4); White Blood Count 14.59 K/uL (4.8-10.8)
[2022-03-13 06:21] LABS: BUN Creatinine Ratio 13.6 (10-20); Calcium 9.1 mg/dl (8.5-10.1); Creatinine Clr Calc Pharmacy 74.4 ml/min; Est GFR (African American) 88.2 ml/min; Est GFR (Non-African American) 76.1 ml/min; Potassium 3.9 mmol/L (3.5-5.1)
--- NOTE | 2022-03-13 07:07 | XRay Report ---
XR KUB/Abdomen 1 view CLINICAL HISTORY: NGT placement TECHNIQUE: 1 view of the abdomen was obtained. Comparison: Comparison is made to chest radiograph 03/12/2022 FINDINGS: Enteric tube side-port is just above the diaphragm, the tip is within the stomach. The osseous struct ures are grossly unremarkable. Gaseous dilation of the small bowel is seen measuring up to 37 mm. A m oderate amount of stool is noted within the large bowel. IMPRESSION: 1. Enteric tube side-port just above the diaphragm and can be advanced approximately 5 cm for improv ed positioning. 2. Gaseous distention of the small bowel compatible with ileus versus small bowel obstruction. ACT 112: Negative or not required by law. Electronically signed by: Humphrey Chavez M.D. 03/13/2022 7:05 AM
--- NOTE | 2022-03-13 07:36 | XRay Report ---
XR KUB/Abdomen 1 view CLINICAL HISTORY: N/V--??ileus TECHNIQUE: 1 view of the abdomen was obtained. Comparison: None available at the time of this dictation. FINDINGS: Lung bases are unremarkable. Degenerative changes are seen in the visualized skeleton. Multiple dilat ed loops of bowel are seen measuring up to 37 mm Small stool burden is seen. IMPRESSION: Multiple dilated loops of small bowel may represent ileus or partial obstruction. ACT 112: Negative or not required by law. Electronically signed by: Humphrey Chavez M.D. 03/13/2022 7:35 AM
[2022-03-13] MEDS ORDERED: PIPERACILL/TAZOBAC CONSULT ACTIVE PRN (07:44)
--- NOTE | 2022-03-13 07:51 | Surgery Progress Note ---
Date of Service March 13, 2022 Assessment & Plan (1) Acute appendicitis: Plan: POD#2 laparoscopic appendectomy for perforated and gangrenous appendicitis -WBC 14 (13), Hbg 13. HR's 100s, afebrile, SBP 100s -NGT was placed for concern for ileus seen on KUB, has put out about 250cc thus far -Pt reports improvement in abdominal distention and nausea. She is still having some discomfort to palpation in epigastric and RLQ regions -Will continue on IV abx while admitted for perforated appy, and change to IV zosyn. At time of dispo will complete a course of po abx -Continue supportive care with NGT, NPO +ice, IVF, until further improvement in symptoms -[facility] surgery covering over the weekend Admission and Anticipated Discharge Date Admission Date: March 11, 2022 Supervising Physician Co-Signing Physician Notes I personally saw and evaluated the patient with Shilpa Alvarado PA-C and agree with the assessment and plan. 51-year-old female postoperative day 2 laparoscopic appendectomy for a gangrenous perforated appendicitis NG tube was placed last night, keep in place today Will change her fluids and keep her electrolytes in normal range Change antibiotics to Zosyn, white blood cell count remains elevated at 14 Encourage ambulation and incentive spirometry Subjective Discussed overnight events with patient. She had increasing abdominal distention and pain associated with n/v. She now has NGT in place and is feeling better this morning. No bowel function. Physical Exam Physical Exam: awake/alert, no distress Gastrointestinal (Abdomen): Inspection/Auscultation: + abdomen distended and + abdominal surgical incision (surgical dressings in place) Percussion/Palpation: + abdomen tender (ttp in epigastric and RLQ) and abdomen soft NGT 250cc documented Results & Data ([facility]) Vital Signs (Past 12 Hours) Vital Signs Temp Pulse Resp BP Pulse Ox 03/13/22 06:44 37.0 C 114 H 14 109/73 93 03/13/22 03:45 37.4 C 110 H 105/72 03/13/22 00:30 36.7 C 102 H 14 99/77 L 94 03/12/22 22:31 37.2 C 113 H 16 100/69 94 PG Care Time/CCT Total # of Minutes Spent Total Time Spent with Patient: Total time spent is greater than 50% in coordination of care (as documented) at patient's floor/unit and/or counseling patient: Coding Level of Care Code None Diagnoses Acute appendicitis K35.80
[2022-03-13] MEDS ORDERED: PIPERACILLIN/TAZOBACTAM 3.375 GM in DEXTROSE 5% 100 ML IV ONE (08:00)
[2022-03-13] MEDS: LACTATED RINGER'S 1,000 ML IV SCH (08:42)
[2022-03-13] MEDS: oxyCODONE HCL IR 5 MG TAB (IMMEDIATE RELEASE) PO PRN (08:46)
[2022-03-13] MEDS: D5NSS + 20MEQ KCL 20 MEQ/1,000 ML BAG IV SCH ×2 (09:57→19:34)
[2022-03-13] MEDS: PIPERACILLIN/TAZOBACTAM 3.375 GM in DEXTROSE 5% 100 ML IV SCH ×2 (14:32→21:42)
[2022-03-13] MEDS: ACETAMINOPHEN 1000 MG/100 ML IV IV PRN (18:12)
[2022-03-13] MEDS: ONDANSETRON INJ 2 MG/ML 2 ML VIAL IV PRN (19:38)
[2022-03-14] MEDS: ONDANSETRON INJ 2 MG/ML 2 ML VIAL IV PRN ×4 (01:17→19:42)
[2022-03-14] MEDS: D5NSS + 20MEQ KCL 20 MEQ/1,000 ML BAG IV SCH ×2 (05:12→15:36)
[2022-03-14] MEDS: MoRPHine SULFATE 2 MG/ML CARP IV PRN ×5 (05:53→22:45)
[2022-03-14] MEDS: PIPERACILLIN/TAZOBACTAM 3.375 GM in DEXTROSE 5% 100 ML IV SCH ×3 (05:54→21:39)
[2022-03-14 06:25] LABS: Basophils # (auto) 0.01 K/uL (0-0.2); Basophils % (auto) 0.1 %; Eosinophils # (auto) 0.02 K/uL (0-0.5); Eosinophils % (auto) 0.1 %; Hematocrit (blood only) 34.6 % (37-47); Hemoglobin 11.9 g/dL (12.0-16.0); Immature Granulocytes # (auto) 0.04 K/uL (0.00-0.02); Immature Granulocytes % (auto) 0.3 %; Lymphocytes # (auto) 0.87 K/uL (1.2-3.4); Mean Corpuscular Hgb Conc 34.4 g/dL (32-36); Mean Corpuscular Volume 87.2 fL (80-100); Mean Platelet Volume 9.1 fL (7.4-10.4); Monocytes # (auto) 0.56 K/uL (0.11-0.59); Monocytes % (auto) 3.8 %; Neutrophils # (auto) 13.11 K/uL (1.4-6.5); Neutrophils % (auto) 89.7 %; Platelet Count 394 K/uL (130-400); RDW Coefficient of Variation 13.6 % (11.5-14.5); RDW Standard Deviation 43.7 fL (36.4-46.3); Red Blood Count 3.97 M/uL (4.2-5.4); White Blood Count 14.61 K/uL (4.8-10.8)
[2022-03-14 06:56] LABS: BUN Creatinine Ratio 11.7 (10-20); Creatinine Clr Calc Pharmacy 85.1 ml/min; Est GFR (African American) 103.6 ml/min; Est GFR (Non-African American) 89.4 ml/min
[2022-03-14] MEDS: oxyCODONE HCL IR 5 MG TAB (IMMEDIATE RELEASE) PO PRN ×2 (08:21→12:19)
[2022-03-14] MEDS: FAMOTIDINE 20 MG in SYRINGE 3 ML IV SCH ×2 (10:29→21:39)
--- NOTE | 2022-03-14 10:44 | Surgery Progress Note ---
Date of Service March 14, 2022 Assessment & Plan (1) Acute appendicitis: Plan: s/p lap appy for gangrenous appendicitis. WBC ct persistently elevated. Continue zosyn. (2) Ileus, postoperative: Plan: NG needed to be advanced yesterday - was advanced to 61 cm (from 52). Given low output of ng and persistent nausea, abdominal distention - will check kub to confirm tube is in stomach. Continue antinausea meds, on pepcid, encourage ambulation. Admission and Anticipated Discharge Date Admission Date: March 13, 2022 Subjective Complaining of abdominal cramping, worse indigestion, nausea. Sore throat from ng. No flatus or bowel movement. Review of Systems Review of Systems: All systems reviewed & are unremarkable except as noted in HPI & below Physical Exam Constitutional: WD/WN, vitals as above Eyes: PERRL, conjunctivae normal, anicteric sclerae Respiratory: normal respiratory effort, lungs clear to auscultation Cardiovascular: RRR, no murmur, no edema Gastrointestinal (Abdomen): Inspection/Auscultation: + abdomen distended, + abdominal surgical incision (clean) and + hypoactive bowel sounds Percussion/Palpation: + abdomen tender (diffusely) and + abdomen firm; no guarding Musculoskeletal: Head/Neck/Chest: normocephalic and head atraumatic Extremities: extremities normal to inspection Neurologic: moves all extremities and awake Psychiatric: A+Ox3, euthymic affect Results & Data ([facility]) Vital Signs (Past 12 Hours) Vital Signs Temp Pulse Resp BP Pulse Ox 03/14/22 07:48 37.0 C 101 H 16 102/67 91 Laboratory Results Abnormal lab results 03/14/22 03/14/22 Range/Units 06:02 06:02 WBC 14.61 H (4.8-10.8) K/uL RBC 3.97 L (4.2-5.4) M/uL Hgb 11.9 L (12.0-16.0) g/dL Hct 34.6 L (37-47) % Neut # (Auto) 13.11 H (1.4-6.5) K/uL Lymph # (Auto) 0.87 L (1.2-3.4) K/uL Immature Gran # (Auto) 0.04 H (0.00-0.02) K/uL Sodium 135 L (136-145) mmol/L Glucose 128 H (70-99(Fasting)) mg/dl Calcium 8.0 L (8.5-10.1) mg/dl Diagnostic Findings XR KUB/Abdomen 1 view CLINICAL HISTORY: NGT placement TECHNIQUE: 1 view of the abdomen was obtained. Comparison: Comparison is made to chest radiograph 03/12/2022 FINDINGS: Enteric tube side-port is just above the diaphragm, the tip is within the stomach. The osseous structures are grossly unremarkable. Gaseous dilation of the small bowel is seen measuring up to 37 mm. A moderate amount of stool is noted within the large bowel. IMPRESSION: 1. Enteric tube side-port just above the diaphragm and can be advanced approximately 5 cm for improved positioning. 2. Gaseous distention of the small bowel compatible with ileus versus small bowel obstruction.
--- NOTE | 2022-03-14 11:18 | XRay Report ---
KUB HISTORY: assess ng position COMPARISON: KUB 03/13/2022. FINDINGS: Nasogastric tube terminates in the stomach. Dilated gas-filled loops of small bowel are aga in noted consistent with an ileus versus partial small bowel obstruction. This remains unchanged. No renal calculi. No ureteral calculi. No pneumoperitoneum or pneumatosis. IMPRESSION: 1. Nasogastric tube terminates in the stomach. 2. Dilated gas-filled loops of small bowel again noted suggesting an ileus versus partial small bowel obstruction. ACT 112: Negative or not required by law. Electronically signed by: Ole Gant M.D. 03/14/2022 11:16 AM
[2022-03-14] MEDS ORDERED: PROMETHAZINE HCL 12.5 MG in SODIUM CHLORIDE 0.9% 50 ML IV PRN (12:24)
[2022-03-15] MEDS: D5NSS + 20MEQ KCL 20 MEQ/1,000 ML BAG IV SCH ×3 (01:07→20:40)
[2022-03-15] MEDS: ACETAMINOPHEN 1000 MG/100 ML IV IV PRN ×3 (01:33→21:44)
[2022-03-15] MEDS: PIPERACILLIN/TAZOBACTAM 3.375 GM in DEXTROSE 5% 100 ML IV SCH ×3 (05:54→21:36)
[2022-03-15] MEDS: ONDANSETRON INJ 2 MG/ML 2 ML VIAL IV PRN ×3 (07:22→18:43)
[2022-03-15] MEDS: FAMOTIDINE 20 MG in SYRINGE 3 ML IV SCH ×2 (08:03→20:40)
[2022-03-15] MEDS: MoRPHine SULFATE 2 MG/ML CARP IV PRN (08:08)
[2022-03-15 08:20] LABS: Basophils # (auto) 0.02 K/uL (0-0.2); Basophils % (auto) 0.1 %; Eosinophils % (auto) 0.7 %; Hematocrit (blood only) 34.8 % (37-47); Hemoglobin 11.7 g/dL (12.0-16.0); Immature Granulocytes # (auto) 0.04 K/uL (0.00-0.02); Immature Granulocytes % (auto) 0.3 %; Lymphocytes # (auto) 1.64 K/uL (1.2-3.4); Mean Corpuscular Hemoglobin 29.5 pg (25-34); Mean Corpuscular Hgb Conc 33.6 g/dL (32-36); Mean Corpuscular Volume 87.9 fL (80-100); Mean Platelet Volume 8.8 fL (7.4-10.4); Monocytes # (auto) 1.02 K/uL (0.11-0.59); Monocytes % (auto) 6.8 %; Neutrophils # (auto) 12.13 K/uL (1.4-6.5); Neutrophils % (auto) 81.1 %; Platelet Count 397 K/uL (130-400); RDW Coefficient of Variation 13.9 % (11.5-14.5); RDW Standard Deviation 44.8 fL (36.4-46.3); Red Blood Count 3.96 M/uL (4.2-5.4); White Blood Count 14.95 K/uL (4.8-10.8)
[2022-03-15 08:48] LABS: BUN Creatinine Ratio 11.1 (10-20); Calcium 8.4 mg/dl (8.5-10.1); Est GFR (African American) 112.4 ml/min; Potassium 4.6 mmol/L (3.5-5.1)
[2022-03-15] MEDS ORDERED: LORazepam 2 MG/1 ML VIAL IV PRN (11:26)
--- NOTE | 2022-03-15 11:31 | Surgery Progress Note ---
Date of Service March 15, 2022 Assessment & Plan (1) Acute appendicitis: Plan: s/p lap appy for gangrenous appendicitis. WBC ct persistently elevated. Continue zosyn. (2) Ileus, postoperative: Plan: NG output is high (draining well). Still with ileus pattern on imaging and clinical exam. Discussed trying to minimize narcotics, increase ambulation. If no improvement in next 1-2 days, discussed CT to look for abscess. Will try anti anxiety meds as she is having a hard time dealing with this emotionally. Admission and Anticipated Discharge Date Admission Date: March 13, 2022 Subjective Remains with ileus. Cramping pain,no flatus, no bowel movement, very distended and bloated. No fevers. NG output high Physical Exam Constitutional: WD/WN, vitals as above Eyes: PERRL, conjunctivae normal, anicteric sclerae Respiratory: normal respiratory effort, lungs clear to auscultation Cardiovascular: RRR, no murmur, no edema Gastrointestinal (Abdomen): Inspection/Auscultation: + abdomen distended, + abdominal surgical incision (clean) and + hypoactive bowel sounds Percussion/Palpation: + abdomen tender (diffusely) and + abdomen firm; no guarding Musculoskeletal: Head/Neck/Chest: normocephalic and head atraumatic Extremities: extremities normal to inspection Neurologic: moves all extremities and awake Psychiatric: A+Ox3, euthymic affect Results & Data ([facility]) Vital Signs (Past 12 Hours) Vital Signs Temp Pulse Resp BP Pulse Ox 03/15/22 08:05 36.8 C 85 16 121/80 94 Laboratory Results 03/15/22 03/15/22 Range/Units 07:39 07:39 WBC 14.95 H (4.8-10.8) K/uL RBC 3.96 L (4.2-5.4) M/uL Hgb 11.7 L (12.0-16.0) g/dL Hct 34.8 L (37-47) % MCV 87.9 (80-100) fL MCH 29.5 (25-34) pg MCHC 33.6 (32-36) g/dL RDW Std Deviation 44.8 (36.4-46.3) fL RDW Coeff of Sandra 13.9 (11.5-14.5) % Plt Count 397 (130-400) K/uL MPV 8.8 (7.4-10.4) fL Immature Gran % (Auto) 0.3 % Neut % (Auto) 81.1 % Lymph % (Auto) 11.0 % Metcalfe % (Auto) 6.8 % Eos % (Auto) 0.7 % Baso % (Auto) 0.1 % Neut # (Auto) 12.13 H (1.4-6.5) K/uL Lymph # (Auto) 1.64 (1.2-3.4) K/uL Metcalfe # (Auto) 1.02 H (0.11-0.59) K/uL Eos # (Auto) 0.10 (0-0.5) K/uL Baso # (Auto) 0.02 (0-0.2) K/uL Immature Gran # (Auto) 0.04 H (0.00-0.02) K/uL Sodium 137 (136-145) mmol/L Potassium 4.6 (3.5-5.1) mmol/L Chloride 106 (98-107) mmol/L Carbon Dioxide 26 (21-32) mmol/L Anion Gap 5 (3-11) BUN 8 (6-23) mg/dl Creatinine 0.72 (0.6-1.2) mg/dl Est Cr Clr Drug Dosing 91.0 ml/min Est GFR ( Amer) 112.4 ml/min Est GFR (Non-Af Amer) 97.0 ml/min BUN/Creatinine Ratio 11.1 (10-20) Glucose 107 H (70-99(Fasting)) mg/dl Calcium 8.4 L (8.5-10.1) mg/dl Diagnostic Findings xray yesterday shows dilated loops of bowel
[2022-03-16] MEDS: D5NSS + 20MEQ KCL 20 MEQ/1,000 ML BAG IV SCH ×2 (06:11→15:58)
[2022-03-16] MEDS: PIPERACILLIN/TAZOBACTAM 3.375 GM in DEXTROSE 5% 100 ML IV SCH ×3 (06:11→21:34)
[2022-03-16 07:04] LABS: Basophils # (auto) 0.06 K/uL (0-0.2); Basophils % (auto) 0.4 %; Eosinophils # (auto) 0.22 K/uL (0-0.5); Eosinophils % (auto) 1.5 %; Hematocrit (blood only) 34.1 % (37-47); Hemoglobin 11.9 g/dL (12.0-16.0); Immature Granulocytes # (auto) 0.07 K/uL (0.00-0.02); Immature Granulocytes % (auto) 0.5 %; Lymphocytes % (auto) 11.2 %; Mean Corpuscular Hemoglobin 30.5 pg (25-34); Mean Corpuscular Hgb Conc 34.9 g/dL (32-36); Mean Corpuscular Volume 87.4 fL (80-100); Monocytes # (auto) 0.74 K/uL (0.11-0.59); Monocytes % (auto) 5.2 %; Neutrophils # (auto) 11.59 K/uL (1.4-6.5); Neutrophils % (auto) 81.2 %; Platelet Count 465 K/uL (130-400); RDW Coefficient of Variation 13.7 % (11.5-14.5); White Blood Count 14.28 K/uL (4.8-10.8)
[2022-03-16 07:24] LABS: BUN Creatinine Ratio 8.1 (10-20); Calcium 8.5 mg/dl (8.5-10.1); Creatinine Clr Calc Pharmacy 105.6 ml/min; Est GFR (Non-African American) 104.4 ml/min; Potassium 3.7 mmol/L (3.5-5.1)
[2022-03-16] MEDS: FAMOTIDINE 20 MG in SYRINGE 3 ML IV SCH ×2 (09:02→20:56)
--- NOTE | 2022-03-16 12:19 | Surgery Progress Note ---
Date of Service March 16, 2022 Assessment & Plan (1) Acute appendicitis: Plan: s/p lap appy for gangrenous appendicitis. WBC ct persistently elevated. Continue zosyn. (2) Ileus, postoperative: Plan: NG output continues to be high (draining well). Still with ileus pattern on imaging and clinical exam. Discussed trying to minimize narcotics, increase ambulation. If no improvement in next 1-2 days, discussed CT to look for abscess. Admission and Anticipated Discharge Date Admission Date: March 13, 2022 Subjective Still continues to have significant drainage from the NG today. She still feels distended with minimal flatus. She has had 2 bowel movements. She denies nause a or vomiting. Physical Exam Constitutional: WD/WN, vitals as above Gastrointestinal (Abdomen): Inspection/Auscultation: + abdomen distended and + abdominal surgical incision (clean) Percussion/Palpation: + abdomen tender (diffusely) and + abdomen firm; no guarding Neurologic: moves all extremities and awake Psychiatric: A+Ox3, euthymic affect Results & Data ([facility]) Vital Signs (Past 12 Hours) Vital Signs Temp Pulse Resp BP Pulse Ox 03/16/22 07:57 36.9 C 90 16 119/77 94
[2022-03-16] MEDS: ONDANSETRON INJ 2 MG/ML 2 ML VIAL IV PRN ×2 (16:30→23:41)
[2022-03-17] MEDS: D5NSS + 20MEQ KCL 20 MEQ/1,000 ML BAG IV SCH ×3 (02:14→23:02)
[2022-03-17] MEDS: PIPERACILLIN/TAZOBACTAM 3.375 GM in DEXTROSE 5% 100 ML IV SCH ×3 (05:32→21:17)
[2022-03-17] MEDS: ONDANSETRON INJ 2 MG/ML 2 ML VIAL IV PRN (05:34)
--- NOTE | 2022-03-17 08:16 | Surgery Progress Note ---
Date of Service March 17, 2022 Assessment & Plan (1) Acute appendicitis: Plan: POD 6 lap appy NG output down but remains distended and tender, WBC pending will check CT to r/o abscess Admission and Anticipated Discharge Date Admission Date: March 13, 2022 Supervising Physician Co-Signing Physician Notes I personally saw and evaluated the patient with Javier Deleon PA-C and agree with the assessment and plan. 51-year-old female postoperative day 6 laparoscopic appendectomy for a gangrenous perforated appendicitis NG tube output decreasing, is having some loose bowel movements CBC pending today, she has had a persistent leukocytosis since her appendectomy Order a CT with p.o. and IV contrast to look for any abscess Encourage ambulation and incentive spirometry Subjective some pain this AM, having multiple loose BMs, ambulating, no fevers Physical Exam Gastrointestinal (Abdomen): Inspection/Auscultation: + abdomen distended and + abdominal surgical incision (dry) Percussion/Palpation: + abdomen tender (RLQ) and abdomen soft Results & Data ([facility]) Vital Signs (Past 12 Hours) Vital Signs Temp Pulse Resp BP BP Pulse Ox 03/17/22 07:21 36.7 C 87 18 130/80 97 03/16/22 23:27 36.6 C 88 14 123/76 94 PG Care Time/CCT Total # of Minutes Spent Total Time Spent with Patient: Total time spent is greater than 50% in coordination of care (as documented) at patient's floor/unit and/or counseling patient: Coding Level of Care Code None Diagnoses Acute appendicitis K35.80
[2022-03-17] MEDS: FAMOTIDINE 20 MG in SYRINGE 3 ML IV SCH ×2 (08:34→20:13)
[2022-03-17 09:56] LABS: Hematocrit (blood only) 31.5 % (37-47); Hemoglobin 10.6 g/dL (12.0-16.0); Mean Corpuscular Hgb Conc 33.7 g/dL (32-36); Mean Corpuscular Volume 86.1 fL (80-100); Mean Platelet Volume 8.7 fL (7.4-10.4); Platelet Count 456 K/uL (130-400); RDW Coefficient of Variation 13.7 % (11.5-14.5); RDW Standard Deviation 43.2 fL (36.4-46.3); Red Blood Count 3.66 M/uL (4.2-5.4); White Blood Count 11.79 K/uL (4.8-10.8)
[2022-03-17 10:12] LABS: Basophils # (auto) 0.02 K/uL (0-0.2); Basophils % (auto) 0.2 %; Eosinophils # (auto) 0.17 K/uL (0-0.5); Eosinophils % (auto) 1.4 %; Immature Granulocytes # (auto) 0.08 K/uL (0.00-0.02); Immature Granulocytes % (auto) 0.7 %; Lymphocytes # (auto) 1.51 K/uL (1.2-3.4); Lymphocytes % (auto) 12.8 %; Monocytes # (auto) 0.78 K/uL (0.11-0.59); Monocytes % (auto) 6.6 %; Neutrophils # (auto) 9.23 K/uL (1.4-6.5); Neutrophils % (auto) 78.3 %
[2022-03-17] MEDS ORDERED: OPTIRAY 320 100ml IV ONE (11:56)
--- NOTE | 2022-03-17 12:58 | CT Scan Report ---
ABDOMEN AND PELVIS CT WITH IV AND ORAL CONTRAST CT DOSE: 967.38 mGycm HISTORY: s/p appendectomy, ileus, elevated WBCs TECHNIQUE: Multiaxial CT images of the abdomen and pelvis were performed following the use of intrave nous and oral contrast. A dose lowering technique was utilized adhering to the principles of ALARA. COMPARISON STUDY: Abdomen and pelvis CT 03/11/2022. FINDINGS: Small right and trace left pleural effusions. Nasogastric tube terminates at the distal eso phagus. Patchy bibasilar densities favor atelectasis from the pleural effusions. Chronic scarring and traction bronchiectasis seen within the right middle lobe medially. This remains unchanged. No suspi cious lytic or blastic osseous lesions. Hepatic steatosis. The gallbladder, pancreas, spleen, and adr enal glands are unremarkable. Markedly atrophic left kidney again noted. No hydronephrosis. The bladd er is unremarkable. The uterus is within normal limits. There is a 7 mm fat-containing lesion within the right ovary. Mild thickening of the sigmoid colon. This could be reactive. Interval appendectomy. Multiple scattered small peripheral enhancing fluid collection seen within the pelvis, right lower q uadrant, and right subhepatic space. The fluid collection at the appendectomy site measures 6.8 x 5.3 cm. This abuts the anastomotic suture material. One of the pelvic fluid collection measures approxim ately 8.5 x 4.3 cm. A few thickened distal ileal loops. This is also likely reactive. Trace pneumoper itoneum seen anteriorly within the mid abdomen on image 198. This could be due to the recent postoper ative change. The main portal vein is patent. Normal caliber abdominal aorta. A few mildly dilated co ntrast-filled loops of small bowel within the upper abdomen. This favors an ileus. A partial small lance wel obstruction could also a similar appearance but is considered less likely. The distal ileal loops are decompressed. IMPRESSION: 1. Status post appendectomy. Multiple scattered peripheral enhancing fluid collections seen within th e right subhepatic space, right lower quadrant adjacent to the appendectomy site, and deep pelvis as described above. This is concerning for multiple abscesses. 2. Trace pneumoperitoneum seen anteriorly. This could be due to the recent postoperative change. 3. Small right and trace left pleural effusions. 4. Nasogastric tube terminates in the distal esophagus. This should be advanced by approximately 10 c m. 5. Mildly dilated contrast-filled loops of small bowel within the upper abdomen. The distal ileal loo ps are decompressed. This favors an ileus. A partial small bowel obstruction could also have a simila r appearance. 6. Mildly thickened loops of distal small bowel within the right lower quadrant and the mid sigmoid c olon. This is also likely reactive to the adjacent abscesses. 7. This report was called/faxed to the referring physician following dictation. ACT 112: Negative or not required by law. Electronically signed by: Ole Gant M.D. 03/17/2022 12:56 PM
[2022-03-17] MEDS: ACETAMINOPHEN 1,000 MG/100 ML VIAL IV PRN (21:17)
[2022-03-18] MEDS: ACETAMINOPHEN 1,000 MG/100 ML VIAL IV PRN ×2 (05:42→19:56)
[2022-03-18] MEDS: PIPERACILLIN/TAZOBACTAM 3.375 GM in DEXTROSE 5% 100 ML IV SCH ×3 (05:42→21:04)
[2022-03-18 07:19] LABS: Basophils # (auto) 0.03 K/uL (0-0.2); Basophils % (auto) 0.3 %; Eosinophils # (auto) 0.19 K/uL (0-0.5); Eosinophils % (auto) 1.8 %; Hematocrit (blood only) 31.6 % (37-47); Hemoglobin 10.7 g/dL (12.0-16.0); Immature Granulocytes # (auto) 0.07 K/uL (0.00-0.02); Immature Granulocytes % (auto) 0.7 %; Lymphocytes # (auto) 1.46 K/uL (1.2-3.4); Lymphocytes % (auto) 13.6 %; Mean Corpuscular Hemoglobin 28.9 pg (25-34); Mean Corpuscular Hgb Conc 33.9 g/dL (32-36); Mean Corpuscular Volume 85.4 fL (80-100); Mean Platelet Volume 8.5 fL (7.4-10.4); Monocytes # (auto) 0.61 K/uL (0.11-0.59); Monocytes % (auto) 5.7 %; Neutrophils # (auto) 8.39 K/uL (1.4-6.5); Neutrophils % (auto) 77.9 %; Platelet Count 447 K/uL (130-400); RDW Coefficient of Variation 13.6 % (11.5-14.5); RDW Standard Deviation 42.5 fL (36.4-46.3); White Blood Count 10.75 K/uL (4.8-10.8)
[2022-03-18 07:36] LABS: BUN Creatinine Ratio 4.5 (10-20); Calcium 8.5 mg/dl (8.5-10.1); Creatinine Clr Calc Pharmacy 97.8 ml/min; Est GFR (Non-African American) 101.8 ml/min; Potassium 4.2 mmol/L (3.5-5.1)
--- NOTE | 2022-03-18 07:57 | Surgery Progress Note ---
Date of Service March 18, 2022 Assessment & Plan (1) Acute perforated appendicitis: Plan: POD#7 perforated laparoscopic appendectomy -CT scan performed yesterday due to persistent WBC of 14, showed multiple abscesses. Our radiology dept cannot drain the pelvic collection -WBC today down to 10...she is afebrile with stable vitals -Continue on IV Zosyn -NGT was removed yesterday and she has tolerated that. May trial clears today -Still with discomfort to palpation along R side of abdomen and epigastric region. Managed with APAP -We will see how she fairs...if no improvement may consider transfer out to center with IR Admission and Anticipated Discharge Date Admission Date: March 13, 2022 Supervising Physician Co-Signing Physician Notes I personally saw and evaluated the patient with Shilpa Alvarado PA-C and agree with the assessment and plan. 51-year-old female postoperative day 7 laparoscopic appendectomy for a gangrenous perforated appendicitis CT images and results reviewed by me, pelvic and right lower quadrant fluid collections Discussed CT results with radiology who are unable to drain either collection Her WBC is trending down and is 10 today, she is afebrile and feeling a little better She tolerated some clears yesterday after her NG tube was removed, will advance to full liquids We will decrease her IV fluids, continue her Zosyn We discussed that if she spikes a fever or her white blood cell count spikes she may require transfer to a tertiary care center with interventional radiology capabilities Subjective Patient said she finally slept last night. Passing loose stools. Having some intermittent upper abdomen and R sided belly pain that is controlled with Tylenol. Taking in a small amount of ice chips. Physical Exam Physical Exam: awake/alert, no acute distress Gastrointestinal (Abdomen): Inspection/Auscultation: + abdomen distended (mild) Percussion/Palpation: + abdomen tender (epigastric and along R side of abdomen ) and abdomen soft Results & Data ([facility]) Vital Signs (Past 12 Hours) Vital Signs Temp Pulse Resp BP Pulse Ox 03/17/22 21:20 37.2 C 90 16 118/77 97 PG Care Time/CCT Total # of Minutes Spent Total Time Spent with Patient: Total time spent is greater than 50% in coordination of care (as documented) at patient's floor/unit and/or counseling patient: Coding Level of Care Code None Diagnoses Acute perforated appendicitis K35.32
[2022-03-18] MEDS: FAMOTIDINE 20 MG in SYRINGE 3 ML IV SCH ×2 (08:27→21:04)
[2022-03-18] MEDS: D5NSS + 20MEQ KCL 20 MEQ/1,000 ML BAG IV SCH ×2 (09:07→20:23)
[2022-03-18] MEDS ORDERED: SIMETHICONE 80 MG CHEW PO ONE (15:52)
[2022-03-19] MEDS: PIPERACILLIN/TAZOBACTAM 3.375 GM in DEXTROSE 5% 100 ML IV SCH ×3 (05:43→21:08)
[2022-03-19] MEDS: ACETAMINOPHEN 1,000 MG/100 ML VIAL IV PRN (05:48)
[2022-03-19 07:30] LABS: Basophils # (auto) 0.01 K/uL (0-0.2); Basophils % (auto) 0.1 %; Eosinophils # (auto) 0.18 K/uL (0-0.5); Eosinophils % (auto) 1.7 %; Hematocrit (blood only) 32.4 % (37-47); Hemoglobin 10.7 g/dL (12.0-16.0); Immature Granulocytes # (auto) 0.04 K/uL (0.00-0.02); Immature Granulocytes % (auto) 0.4 %; Lymphocytes # (auto) 1.38 K/uL (1.2-3.4); Lymphocytes % (auto) 12.8 %; Mean Corpuscular Hemoglobin 28.4 pg (25-34); Mean Corpuscular Volume 85.9 fL (80-100); Mean Platelet Volume 8.5 fL (7.4-10.4); Monocytes # (auto) 0.66 K/uL (0.11-0.59); Monocytes % (auto) 6.1 %; Neutrophils # (auto) 8.47 K/uL (1.4-6.5); Neutrophils % (auto) 78.9 %; Platelet Count 514 K/uL (130-400); RDW Coefficient of Variation 13.6 % (11.5-14.5); RDW Standard Deviation 42.8 fL (36.4-46.3); Red Blood Count 3.77 M/uL (4.2-5.4); White Blood Count 10.74 K/uL (4.8-10.8)
[2022-03-19 07:49] LABS: BUN Creatinine Ratio 6.5 (10-20); Calcium 8.6 mg/dl (8.5-10.1); Creatinine Clr Calc Pharmacy 105.6 ml/min; Est GFR (Non-African American) 104.4 ml/min; Potassium 3.8 mmol/L (3.5-5.1)
[2022-03-19] MEDS: D5NSS + 20MEQ KCL 20 MEQ/1,000 ML BAG IV SCH (08:41)
[2022-03-19] MEDS: FAMOTIDINE 20 MG in SYRINGE 3 ML IV SCH ×2 (08:41→20:27)
--- NOTE | 2022-03-19 10:15 | Surgery Progress Note ---
Date of Service March 19, 2022 Assessment & Plan (1) Acute perforated appendicitis: Plan: POD#8 perforated laparoscopic appendectomy -WBC remains 10 and she is afebrile with stable vitals -Having a little bit of bloating and pain with liquids, but she is denying nausea and having + bowel function -Will continue full liquids this AM, may consider advancing to low fiber later if does well. d/c ivf -Continue IV zosyn while in house -If not making much progress with diet and having return of symptoms may need to consider drainage of abscesses -Will check on again later today pt seen. as above. tolerating full liquids...much better than last night some right sided discomfort...managing with tylenol afebrile. vss. wbc normal will advance diet. if continues to be afebrile, wbc remains normal etc...can consider d/c tomorrow on antibiotics. we discussed that if she regresses in anyway we would need to re-consider transfer for IR drainage. Admission and Anticipated Discharge Date Admission Date: March 13, 2022 Subjective Patient reports feeling some abdominal pain and bloating a bit more so than yesterday AM. She thinks it may have been worsened after taking in some liquids yesterday. She otherwise denies nausea/vomiting. At rest in the chair she is feeling okay. She is passing flatus and loose stools. She adamantly does not wa nt the NGT replaced should she need it. She has been ambulating the hallways. She wants to be able to go home, but is anxious about eating and having return of symptoms. Physical Exam Physical Exam: awake/alert, no acute distress Respiratory: normal respiratory effort Gastrointestinal (Abdomen): Inspection/Auscultation: + abdomen distended Percussion/Palpation: + abdomen tender (along R abdomen to palpation) and abdomen soft Results & Data ([facility]) Vital Signs (Past 12 Hours) Vital Signs Temp Pulse Resp BP Pulse Ox 03/19/22 07:11 36.8 C 74 14 117/77 95 PG Care Time/CCT Total # of Minutes Spent Total Time Spent with Patient: Total time spent is greater than 50% in coordination of care (as documented) at patient's floor/unit and/or counseling patient: Coding Level of Care Code None Diagnoses Acute perforated appendicitis K35.32
[2022-03-19] MEDS: HYDROCORTISONE ACETATE 25 MG SUPP PR PRN ×2 (10:31→21:00)
[2022-03-19] MEDS: ACETAMINOPHEN 500 MG TAB PO PRN (12:51)
[2022-03-20] MEDS: ACETAMINOPHEN 500 MG TAB PO PRN ×2 (00:44→08:45)
[2022-03-20] MEDS: PIPERACILLIN/TAZOBACTAM 3.375 GM in DEXTROSE 5% 100 ML IV SCH (05:53)
--- NOTE | 2022-03-20 07:40 | Surgery Progress Note ---
Date of Service March 20, 2022 Assessment & Plan (1) Acute perforated appendicitis: Plan: white count normalized, afebrile tolerating diet will d/c home on po abx f/u in clinic next week Admission and Anticipated Discharge Date Admission Date: March 13, 2022 Subjective BMs forming, tolerated regular dinner, wants to go home Physical Exam Constitutional: WD/WN, vitals as above Gastrointestinal (Abdomen): Inspection/Auscultation: + abdominal surgical incision (no erythema); abdomen not distended Percussion/Palpation: abdomen soft; abdomen nontender Results & Data ([facility]) Vital Signs (Past 12 Hours) Vital Signs Temp Pulse Resp BP Pulse Ox 03/19/22 20:40 36.6 C 86 16 140/69 97 PG Care Time/CCT Total # of Minutes Spent Total Time Spent with Patient: Total time spent is greater than 50% in coordination of care (as documented) at patient's floor/unit and/or counseling patient: Coding Level of Care Code None Diagnoses Acute perforated appendicitis K35.32
[2022-03-20 08:20] LABS: Basophils # (auto) 0.01 K/uL (0-0.2); Basophils % (auto) 0.1 %; Eosinophils # (auto) 0.17 K/uL (0-0.5); Eosinophils % (auto) 1.6 %; Hematocrit (blood only) 34.7 % (37-47); Hemoglobin 11.9 g/dL (12.0-16.0); Immature Granulocytes # (auto) 0.03 K/uL (0.00-0.02); Immature Granulocytes % (auto) 0.3 %; Lymphocytes # (auto) 1.63 K/uL (1.2-3.4); Mean Corpuscular Hemoglobin 29.8 pg (25-34); Mean Corpuscular Hgb Conc 34.3 g/dL (32-36); Mean Platelet Volume 8.4 fL (7.4-10.4); Monocytes # (auto) 0.66 K/uL (0.11-0.59); Monocytes % (auto) 6.1 %; Neutrophils % (auto) 76.9 %; Platelet Count 655 K/uL (130-400); RDW Coefficient of Variation 13.3 % (11.5-14.5); RDW Standard Deviation 42.7 fL (36.4-46.3); Red Blood Count 3.99 M/uL (4.2-5.4)
[2022-03-20 09:04] LABS: BUN Creatinine Ratio 11.8 (10-20); Calcium 9.3 mg/dl (8.5-10.1); Creatinine Clr Calc Pharmacy 96.3 ml/min; Est GFR (African American) 117.4 ml/min; Est GFR (Non-African American) 101.3 ml/min
[2022-03-20] MEDS: FAMOTIDINE 20 MG in SYRINGE 3 ML IV SCH (09:19)
--- NOTE | 2022-03-23 09:55 | Discharge Summary ---
Date of Service March 20, 2022 Principal Diagnosis acute perforated appendicitis Discharge Exam awake/alert Gastrointestinal (Abdomen) Inspection/Auscultation: + abdominal surgical incision (c/d/i with steri strips); abdomen not distended Percussion/Palpation: abdomen soft Discharge Data Allergies Allergy/AdvReac Type Severity Reaction Status Date / Time No Known Allergies Allergy Verified 03/11/22 11:25 Procedures Performed Operation Date: 03/11/22 09:15 Actual Procedures p Laparoscopic Appendectomy(Not Applicable) - Stalin Lamar, Ordered Studies 03/11/22 08:55 CT abd pelvis IV con only Stat 03/17/22 08:14 CT abd pelvis oral and IV con Routine Hospital Course (1) Acute perforated appendicitis: This is a 51yF who presented to the [facility] ED on 03/11/22 with abdominal pain. Workup with a CT a/p revealed findings consistent with acute appendicitis. WBC 14.9. She was tender in the RLQ. She was taken to the OR with Dr. Lamar for a laparoscopic appendectomy, intraop found to have perforated gangrenous appendicitis. Post operatively the patient remained on IV abx for the duration of her hospitalization. A diet was initiated, however patient developed n/v and a KUB obtained revealed an ileus. An NGT was placed on 03/13. Her WBC remained in the 14's and abx were adjusted from mefoxin to IV zosyn. Due to persistent elevation in her WBC a repeat CT scan was performed on 03/17/22 that showed m ultiple scattered peripheral enhancing fluid collections seen within the right subhepatic space, right lower quadrant adjacent to the appendectomy site, and deep pelvis concerning for abscess collections. We spoke with our radiology dept who did not feel like they could safely access some of the collections here. Plan in place to remain on IV abx and monitor WBC and symptoms should she need require possible transfer for IR drainage. Her NGT was eventually removed as she started having + bowel function and she was started on clear liquids. On 03/17 her WBC started to improve from 14 to 11 and on 03/18 it was 10 and it remained normal through until her disposition. She was afebrile and her abdominal symptoms were improving slowly. She eventually was only requiring Tylenol for her abdominal discomfort. Patient continued to have + bowel function s/p NGT removal and her diet was able to be advanced from liquids to low fiber without issues. As patient continued to make improvements, tolerate a diet, remain afebrile, and with her WBC normalized she was able to be discharged to home on 03/20/22. She was given a prescription to remain on oral antibiotics and was instructed to have close follow up within 1 week. She was given return precau tions given her situation and she demonstrated understanding and was discharged without event. Total Time Total Time Spent Total Time Spent (In Minutes): 15 Discharge Plan Discharge Items Patient Disposition: Home - Self-Care Reason For Visit: APPENDICITIS Discharge Diagnosis: laparoscopic appendectomy Activity: Per Instructions section Lifting: No more than 10 pounds Bathing Comment: may shower; no soaking in tubs/pools Exercise/Sports: Wait until after follow-up appointment Driving/Machine Use: Resume 1 day after discharge Non-emergency contact: Surgeon Call non-emergency contact if: you have any medication questions, your symptoms worsen, your pain is not controlled, your pain is worsening, your pain is concerning for you, you have a fever, your temperature is above 101.5, your wound has increased redness, your wound has increased drainage and your wound pain has increased Follow-up/Referrals: Stalin Lamar, [Physician] - 04/01/22 9:00 am (Please call to schedule follow up in clinic within 1 week. Next available appointment per Dr. Roberto office is 04/01/22 at 0900) PCP,NO [Primary Care Provider] - Diet: Regular and Low Fiber Addtl Attending Provider Instructions: You have small white bandages on underneath called steri-strips. These will tend to fall off on their own within 7-10 days. You may purchase Tylenol and/or Ibuprofen over the counter if needed for pain control -Tylenol 650mg orally every 4-6 hours, as needed for pain. Do not exceed >3grams of Acetaminophen within a 24 hour time period. -Ibuprofen 200mg-600mg orally every 6-8 hours, as needed for pain. Take with food. Pending Studies at Discharge: Yes Studies:: surgical pathology Stand-Alone Forms: [email or web address] [facility] Perfect, Smoking Cessation Medications and DC Order Prescriptions: New oxycodone 5 mg tablet 5 - 10 mg PO .[id number] PRN (Reason: pain, for initial therapy, max 6 tabs per day) Qty: 15 RF: 0 amoxicillin-pot clavulanate 875-125 mg tablet 1 tab PO BID Qty: 20 RF: 0 hydrocortisone acetate [Anusol-HC] 25 mg suppository 25 mg [place] DAILY PRN (Reason: hemorrhoids) Qty: 12 RF: 0 Continued acetaminophen [Tylenol Extra Strength] 500 mg Tablet 500 mg PO Q6H PRN (Reason: Pain) RF: 0 diphenhydramine HCl [Benadryl] 25 mg Capsule 25 mg PO HS RF: 0 simethicone 80 mg Tablet,Chewable 80 mg PO BID PRN (Reason: GAS PAINS) RF: 0 cholecalciferol (vitamin D3) 50 mcg (2,000 unit) capsule 50 mcg PO QAM RF: 0 Discharge Orders: Discharge Order (Routine); Ordered 03/20/22 Ordered By: Javier Alexander/Other Patient Handouts: Amoxicillin/Clavulanate Oral Tablet 875 mg/125 mg, Appendectomy Admission Data Admit Date/Time: 03/13/22 08:55 Attending Provider: Stalin Lamar Admit Provider: Stalin Lamar Primary Care Provider: PCP,NO Other Interventions: Discharge Summary Assessment (RN) Last Done: 03/20/22 09:42 Coding Level of Care Code D/C DAY MANAGEMENT <30 MINS Diagnoses Acute perforated appendicitis K35.32
--- NOTE | 2022-03-23 14:08 | Coding Query ---
Your help is needed for correct coding of this account; please clarify if the patients Post-operative Ileus was: ( x) expected out of the surgery ( ) unexpected complication from the surgery ( )other please specify Thank you Jaymie LAZO
--- NOTE | 2022-03-23 14:16 | Coding Query ---
CODING QUERY To promote full compliance with coding requirements relating to patient care, provider participation is requested in all cases of wet process miller uncertainty. Please assist us with the question(s) below: Coding Question(s): There is documentation, beginning on the 03/18 Progress Note of "multiple abscesses" and documents, "CT images and results reviewed by me, pelvic and right lower quadrant fluid collections Discussed CT results with radiology who are unable to drain either collection Her WBC is trending down and is 10 today, she is afebrile and feeling a little better She tolerated some clears yesterday after her NG tube was removed, will advance to full liquids We will decrease her IV fluids, continue her Zosyn We discussed that if she spikes a fever or her white blood cell count spikes she may require transfer to a tertiary care center with interventional radiology capabilities". Please specify below, regarding the abscesses. ( ) Abdominopelvic Abscesses. Please specify further below: ( ) likely postoperative complication ( x ) not postoperative complication ( ) Other Abscesses. Please Specify . Please Specify further below: ( ) likely postoperative complication ( x) not postoperative complication Physician's Response(s): Thank you Jaymie Francis Principal Diagnosis: "that condition established after study, to be chiefly responsible for occasioning the admission of the patient to the hospital for care." Co-Existing Principal Diagnosis: "when two or more diagnoses equally meet the criteria for principal diagnosis as determined by the circumstances of admission, diagnostic work up, and/or therapy provided, and the Alphabetic Index, Tabular List, or another coding guideline does not provide sequencing direction, any one of the diagnoses may be sequenced first." "When the physician has documented what appears to be a current diagnosis in the body of the record, but has not included the diagnosis in the final diagnostic statement, the physician should be asked whether the diagnosis should be added." (Source Coding Clinic 2 QTR90. p3-4) VIOLET
== END 2022-03-20 10:23 | disposition home or self-care (01) | DRG 338 ==
LOC: ED 07:29 → ASU 11:00 → 3N 11:00